=== PATIENT | female | born 1965 | race Two or more races ===

== ENCOUNTER 2025-03-21 18:23 | Emergency (ER) | payer MEDICAID, OTHER ==
[~2025-03-21] VITALS: Ht 167.6 cm; Wt 113.1 kg
[2025-03-21 18:24] VITALS: TEMP 98.6
[2025-03-21] MEDS: SODIUM CHLORIDE 0.9% 1,000 ML IV ONE (18:45)
--- NOTE | 2025-03-21 19:01 | ED.PDOC ---
GI ASSESSMENT HPI Comments 59 year old female with no past medical history presents to the ED with a chief complaint of body aches onset today (03/21/25). Patient woke up this morning experiencing body aches, chills, diarrhea, headache. Patient noticed symptoms worsened, came to ED. PMHx arthritis. Denies fever, nausea, vomiting, abdominal pain, hematemesis, melena, sick contact, chest pain, shortness of breath, dysuria, hematuria. No other symptoms or modifying factors present at this time. 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[employer]IC History: No Pertinent BOWLING [employer]LEY MECH[employer]IC History Family History Family History: Reviewed,noncontributory to illness, No family hx of Cancer, No family hx of DM, No family hx of Heart rene, No family hx of HTN, No family hx ofKidney rene, No family hx of Liver rene, No family hx of Lung rene, No family hx of Stroke Social History Smoker: Non-Smoker Alcohol: Denies ETOH Use Drugs: Denies Drug Use Lives In: Home Constitutional: reports: chills, others (body aches); denies: diaphoresis, fatigue, fever, malaise, sweats, weakness EENTM: denies: blurred vision, double vision, ear bleeding, ear discharge, ear drainage, ear pain, ear ringing, eye pain, eye redness, hearing loss, mouth pain, mouth swelling, nasal discharge, nose bleeding, nose congestion, nose pain, photophobia, tearing, throat pain, throat swelling, voice changes, others Respiratory: denies: cough, hemoptysis, orthopnea, SOB at rest, shortness of breath, SOB with excertion, stridor, wheezing, others Cardiovascular: denies: chest pain, dizzy spells, diaphoresis, Dyspnea on exertion, edema, irregular heart beat, left arm pain, lightheadedness, palpitations, PND, syncope, others Gastrointestinal: reports: diarrhea; denies: abdomen distended, abdominal pain, blood streaked bowels, constipated, dysphagia, difficulty swallowing, hematemesis, melena, nausea, poor appetite, poor fluid intake, rectal bleeding, rectal pain, vomiting, others Genitourinary: denies: abnormal vagina bleeding, burning, dyspareunia, dysuria, flank pain, frequency, hematuria, incontinence, pain, , vagina discharge, urgency, others Neurological: reports: headache; denies: dizziness, fainting, left sided numbness, left sided weakness, numbness, paresthesia, pre-existing deficit, right sided numbness, right sided weakness, seizure, speech problems, tingling, tremors, weakness, others Musculoskeletal: denies: back pain, gout, joint pain, joint swelling, muscle pain, muscle stiffness, neck pain, others Integumetry: denies: bruises, change in color, change in hair/nails, dryness, laceration, lesions, lumps, rash, wounds, others Allergic/Immunocompromised: denies: Difficulty Healing, Frequent Infections, Hives, Itching, others Hematologic/Lymphatic: denies: anemia, blood clots, easy bleeding, easy bruising, swollen glands, others Endocrine: denies: excessive hunger, excessive sweating, excessive thirst, excessive urination, flushing, intolerance to cold, intolerance to heat, unexplained weight gain, unexplained weight loss, others Psychiatric: denies: anxiety, bipolar disorder, depression, hopeless, panic disorder, schizophrenia, sleepless, suicidal, others All Other Systems: Reviewed and Negative Physical Exam General Appearance: Normal HEENT: Normal ENT Inspection, Pharynx Normal, TMs Normal Neck: Full Range of Motion, Non-Tender, Normal, Normal Inspection Respiratory: Chest Non-Tender, Lungs Clear, No Accessory Muscle Use, No Respiratory Distress, Normal Breath Sounds Cardiovascular: No Edema, No JVD, No Murmur, No Gallop, Normal Peripheral Pulses, Regular Rate/Rhythm Breast Exam: Deferred Gastrointestinal: No Organomegaly, Non Tender, No Pulsatile Mass, Normal Bowel Sounds, Soft Genitalia: Deferred Pelvic: Deferred Rectal: Deferred Extremities: No calf tenderness, Normal capillary refill, Normal inspection, Normal range of motion, Non-tender, No pedal edema Musculoskeletal : Apperance: Normal Neurologic: Alert, gas engine mechanic II-XII nml as Tested, No Motor Deficits, Normal Affect, Normal Mood, No Sensory Deficits Cerebellar Function: Normal Reflexes: Normal Skin: Dry, Normal Color, Warm Lymphatic: No Adenopathy Was a procedure done? Was a procedure done?: No GI differential Dx Differential Diagnosis: Other (Appendicitis, cholecystitis, kidney stone, gastroenteritis, viral illness, food poisoning) X-Ray, Labs, Meds, VS Vital Signs Date Time Temp Pulse Resp B/P (MAP) Pulse Ox O2 Delivery O2 Flow Rate FiO2 03/21/25 19:17 102 18 96 Room Air 03/21/25 19:17 102 18 147/81 (103) 96 03/21/25 18:24 98.6 103 15 168/88 96 98.6 Lab Test 03/21/25 18:48 Range/Units White Blood Count 11.2 H 4.4-10.8 10^3/uL Red Blood Count 5.44 H 4.0-5.20 10^6/uL Hemoglobin 15.1 12.2-16.2 g/dL Hematocrit 44.6 36.0-46.0 % Mean Corpuscular Volume 82.0 80.0-100.0 fL Mean Corpuscular Hemoglobin 27.8 L 28.0-32.0 pg Mean Corpuscular Hemoglobin Concent 33.9 32.0-36.0 g/dL Red Cell Distribution Width 15.6 H 11.8-14.3 % Platelet Count 270 140-450 10^3/uL Mean Platelet Volume 8.0 6.9-10.8 fL Neutrophils (%) (Auto) 89.8 H 37.0-80.0 % Lymphocytes (%) (Auto) 6.6 L 10.0-50.0 % Monocytes (%) (Auto) 3.2 0.0-12.0 % Eosinophils (%) (Auto) 0.2 0.0-7.0 % Basophils (%) (Auto) 0.2 0.0-2.0 % Neutrophils # (Auto) 10.1 H 1.6-8.6 10 ^3/uL Lymphocytes # (Auto) 0.7 0.4-5.4 10 ^3/uL Monocytes # (Auto) 0.4 0-1.3 10 ^3/uL Eosinophils # (Auto) 0 0-0.8 10 ^3/uL Basophils # (Auto) 0 0-0.2 10 ^3/uL Nucleated Red Blood Cells 0.0 % Sodium Level 138 136-145 mmol/L Potassium Level 4.1 3.5-5.1 mmol/L Chloride Level 103 98-107 mmol/L Carbon Dioxide Level 26 20-31 mmol/L Anion Gap 9 5-15 Blood Urea Nitrogen 13 9-23 mg/dL Creatinine 0.86 0.550-1.02 mg/dL Glomerular Filtration Rate Calc 79 >90 mL/min BUN/Creatinine Ratio 15.1 10.0-20.0 Serum Glucose 99 74-106 mg/dL Calcium Level 8.9 8.7-10.4 mg/dL Lipase 28 12-53 U/L Current Medications Medications (Trade) Dose Ordered Sig/Crystal Route Start Time Stop Time Status Last Admin Sodium Chloride 1,000 ml @ 1,000 mls/hr Q1H ONCE IV 03/21/25 18:45 03/21/25 19:44 DC 03/21/25 18:45 Ondansetron HCl (Zofran) 4 mg O ONCE IV 03/21/25 18:45 03/21/25 18:46 DC 03/21/25 19:40 X-Ray, Labs, Meds, VS Comment 59-year-old female here today with complaints of generalized abdominal discomfort and diarrhea and generalized weakness/body aches. Patient states she feels like she is getting the flu. Vital signs stable, afebrile. Patient was initially with borderline tachycardia with heart rates in the high 90s/low in 100s by on my re-evaluation after receiving her fluids and Zofran her repeat heart rate was in the low 80s. Physical exam without any evidence of abdominal tenderness to palpation nor any other acute findings. Labs overall reassuring with evidence of minimal leukocytosis to 11.2 but otherwise no significant electrolyte abnormality, renal dysfunction, or any other acute pathology. Lipase normal. Patient requesting to be discharged home. Patient was prescribed a short course of Zofran and instructions on maintaining good oral hydration. Patient was instructed to follow up with her primary care provider within 2-3 days for re-evaluation. Strict return precautions for worsening or persistent symptoms, or any other new or concerning symptoms. Patient expressed understanding and was discharged home with her partner in stable condition ambulating with a steady gait and in no distress. Time of 1ST Reevaluation: 19:15 Reevaluation 1ST: Unchanged Time of 2ND Reevaluation: 21:14 Reevaluation 2ND: Resolved Patient Education/Counseling: Diagnosis, Treatment, Prognosis Family Education/Counseling: No Family Present SEPSIS Sepsis Screen Date sepsis recognized/suspect: Mar 21, 2025 Time Sepsis recognized/suspect: 1825 Recent Procedure: No On Antibiotic Therapy: No Respiratory Rate >20: No Heart Rate >90: Yes Temp<36 C (96.8 F) or >38.3 C: No SBP <90 or MAP <65 mmHG: No New Acute Mental Status Change: No Is the patient on CPAP, BIPAP,: No Vital Signs Date Time Temp Pulse Resp B/P (MAP) Pulse Ox O2 Delivery O2 Flow Rate FiO2 03/21/25 19:17 102 18 96 Room Air 03/21/25 19:17 102 18 147/81 (103) 96 03/21/25 18:24 98.6 103 15 168/88 96 98.6 Laboratory Tests Test 03/21/25 18:48 White Blood Count 11.2 10^3/uL (4.4-10.8) H Medications Medications Dose Ordered Sig/Crystal Route Start Time Stop Time Status Last Admin Dose Admin Ondansetron HCl 4 mg O ONCE IV 03/21/25 18:45 03/21/25 18:46 DC 03/21/25 19:40 Sodium Chloride 1,000 ml @ 1,000 mls/hr Q1H ONCE IV 03/21/25 18:45 03/21/25 19:44 DC 03/21/25 18:45 Departure 1 Departure Time of Disposition: 21:14 Impression: Primary Impression: Viral illness Additional Impression: Diarrhea Disposition: 01 HOME / SELF CARE / HOMELESS Condition: Stable e-Prescriptions Ondansetron Odt 4MG Tab (ZOFRAN PO) 4 Mg Tb 4 MG PO Q8HP PRN for 5 Days, #5 TAB ODT TAB-DISSOLVE IN MOUTH, THEN SWALLOW Prov: LEE LO MD 03/21/25 Discharged With: Spouse Critical Care Note Critical Care Time?: No Stability Stability form required: No Heart Score Heart Score: Heart Score Response (Comments) Value History N/A 0 EKG N/A 0 Age N/A 0 Risk Factors N/A 0 Troponin N/A 0 Total 0 I personally scribed for LEE OL MD ([email or web address]) on 03/21/25 at 19:01. Electronically submitted by Francisca Roberts ([email or web address]). LEE LO MD Mar 21, 2025 19:01
[2025-03-21 19:08] LABS: Hematocrit 44.6 % (36.0-46.0); Hemoglobin 15.1 g/dL (12.2-16.2); Mean Corpuscular Hemoglobin 27.8 pg (28.0-32.0); Mean Corpuscular Volume 82.0 fL (80.0-100.0); Nucleated Red Blood Cells % 0.0 %
[2025-03-21 19:17] VITALS: BP 147/81; PULSE 102; RESP 18; O2SAT 96
[2025-03-21 19:34] LABS: Chloride 103 mmol/L (98-107); Potassium 4.1 mmol/L (3.5-5.1); Sodium 138 mmol/L (136-145)
[2025-03-21 19:35] LABS: Anion Gap 9 (5-15); Calcium 8.9 mg/dL (8.7-10.4); Carbon Dioxide 26 mmol/L (20-31)
[2025-03-21 19:40] LABS: Glucose 99 mg/dL (74-106)
[2025-03-21] MEDS: ONDANSETRON HCL 4 MG/2 ML VIAL IV ONE (19:40)
[2025-03-21 19:41] LABS: BUN/Creatinine Ratio 15.1 (10.0-20.0); Blood Urea Nitrogen 13 mg/dL (9-23)
[2025-03-21] MEDS ORDERED: ZOFR4T PO (21:16)
== END 2025-03-21 21:36 | disposition home or self-care (01) ==
LOC: ER 18:23
DX: B34.9 Viral infection, unspecified (principal); R19.7 Diarrhea, unspecified; M19.90 Unspecified osteoarthritis, unspecified site
CPT/HCPCS: 36415; 80048; 83690; 85025; 96361; 96374; 99283; J2405; J7030